=== PATIENT | male | born 1985 ===

== ENCOUNTER 2019-10-11 20:01 | Emergency (ER) | payer OTHER ==
[~2019-10-11] VITALS: Ht 172.7 cm; Wt 81.6 kg
--- NOTE | 2019-10-11 20:05 | NUR ---
pt in bed. restless, a/o BP 136/95, HR 105
[2019-10-11] MEDS ORDERED: [UNRECOGNIZED DRUG - REMARK] (20:10)
[2019-10-11] MEDS ORDERED: [UNRECOGNIZED DRUG - REMARK] (20:10)
--- NOTE | 2019-10-11 20:12 | NUR ---
Dr. Rodriguez at bedside for MSE
[2019-10-11] MEDS ORDERED: HALOPERIDOL LACTATE 5 MG/1 ML VIAL IM ONE (20:15)
[2019-10-11] MEDS ORDERED: LORAZEPAM 2 MG/1 ML VIAL IV ONE (20:15)
[2019-10-11] MEDS ORDERED: HALOPERIDOL LACTATE 5 MG/1 ML VIAL ONE (20:21)
[2019-10-11] MEDS ORDERED: LORAZEPAM 2 MG/1 ML VIAL ONE (20:22)
--- NOTE | 2019-10-11 20:30 | NUR ---
patient given IM inject of halodol and ativan for MD orders
--- NOTE | 2019-10-11 21:36 | NUR ---
pt in bed, resting. no s/s of distress respirations even and unlabored safety precautions in place. bed locked, lowest position. will continue to monitor
--- NOTE | 2019-10-12 | NUR ---
pt in bed asleep no s/s of distress respirations even and unlabored safety precautions in place will continue to monitor
--- NOTE | 2019-10-12 02:30 | NUR ---
pt in bed, asleep, easily arousable no s/s distress respirations even and unlabored safety precautions in place will continue to monitor
--- NOTE | 2019-10-12 04:20 | NUR ---
Patient discharged to home in stable condition. Written and verbal after care instructions given. Patient verbalizes understanding of instructions. Stressed follow up or return to ER for worsening s/s. a/ox4. able to speak in complete sentences no s/s of distress ambulatory with steady gait all belongings with pt
[2019-10-12 04:25] VITALS: BP 106/65
== END 2019-10-12 04:20 | disposition home or self-care (01) ==
LOC: ER 20:01
DX: F41.9 Anxiety disorder, unspecified (principal); T44.995A Adverse effect of other drug primarily affecting the autonomic nervous system, initial encounter; Y92.019 Unspecified place in single-family (private) house as the place of occurrence of the external cause
CPT/HCPCS: 96372 ×2; 99284; J1630; J2060; A4663